=== PATIENT | male | born 1970 | race Hispanic/Latino ===

== ENCOUNTER 2017-05-29 22:38 | Emergency (ER) | payer MEDICARE ==
[2017-05-29] MEDS ORDERED: KETOROLAC TROMETHAMINE 60 MG/2 ML VIAL ONE (23:04)
== END 2017-05-29 23:55 | disposition home or self-care (01) ==
LOC: EDH 22:38
DX: M10.9 Gout, unspecified (principal); I10 Essential (primary) hypertension; Z98.890 Other specified postprocedural states
CPT/HCPCS: 96372; 99283; J1885

== ENCOUNTER 2019-08-01 18:30 | Emergency (ER) | payer MEDICARE ==
[2019-08-01] MEDS ORDERED: CLINDAMYCIN 900 MG/D5% WATER 50 ML IV ONE (19:52)
== END 2019-08-01 21:24 | disposition home or self-care (01) ==
LOC: EDH 18:30
DX: L03.012 Cellulitis of left finger (principal); I10 Essential (primary) hypertension; Z98.890 Other specified postprocedural states
CPT/HCPCS: 36415; 73130; 80053; 85025; 96365; 99284; J3490

== ENCOUNTER 2023-04-15 15:56 | Emergency (ER) | payer OTHER, MEDICARE ==
[~2023-04-15] VITALS: Ht 170.2 cm; Wt 72.6 kg
[2023-04-15 15:56] VITALS: O2SAT 97
[~2023-04-15 15:56] MED LIST: ALLO300T2 PO; AMOX500T2 PO; IBUP-2077 PO; IRON TABLETS PO; MUPI15C TP; TYL3B PO
[2023-04-15 15:57] VITALS: BP 134/65; PULSE 58; RESP 18
[2023-04-15] MEDS ORDERED: KETOROLAC 30MG VIAL (30MG/ML) IM ONE (16:00)
[2023-04-15 16:40] LABS: APPEARANCE,URINE CLEAR (CLEAR); BILIRUBIN,URINE NEGATIVE (NEGATIVE); GLUCOSE, URINE (UA) NEGATIVE (NEGATIVE); KETONES,URINE NEGATIVE (NEGATIVE); LEUKOCYTE ESTERASE ,URINE NEGATIVE Leu/uL (NEGATIVE); NITRATE,URINE NEGATIVE (NEGATIVE); OCCULT BLOOD,URINE SMALL (NEGATIVE); PROTEIN,URINE NEGATIVE (NEGATIVE); UROBILINOGEN,URINE 0.2 mg/dL (0.2-1.0)
[2023-04-15 16:41] LABS: ADD UA MICROSCOPIC YES; COLOR,URINE YELLOW (YELLOW)
[2023-04-15 16:42] LABS: WBC,URINE 0-1 /HPF (0-1)
== END 2023-04-15 18:24 | disposition home or self-care (01) ==
LOC: EDH 15:56
DX: R10.9 Unspecified abdominal pain (principal); M79.18 Myalgia, other site; G10 Huntington's disease; Z79.899 Other long term (current) drug therapy
CPT/HCPCS: 99284; 71045; 81001; 96372; J1885